=== PATIENT | male | born 1995 | race Caucasian/White ===

== ENCOUNTER 2016-11-21 02:40 | Emergency (ER) | payer OTHER ==
[2016-11-21 02:43] VITALS: BP 130/82; PULSE 79; RESP 18; TEMP 98.2; O2SAT 98
--- NOTE | 2016-11-21 02:49 | EDPHY ---
H & P Stated Complaint: PUNCHED A WALL WITH LEFT HAND HPI/ROS: HPI CHIEF COMPLAINT: Left hand pain, swelling status post punching the wall and hitting stud, alcohol intoxication HISTORY OF PRESENT ILLNESS: This patient very pleasant 21-year-old male he tells me that he was been drinking this evening, tells me he had a few beers and a few mixed drinks, he punched a wall with his left hand and went through the drywall and had a stud. He now has swelling and pain to the dorsum of his left hand, and pain located over the 4th and 5th metacarpal. 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 Neurovascular intact. He does have pain present. Patient denies this being a fight bite, or punching face/teeth. Tetanus UTD. Past Medical History: No medical history Past Surgical History: Right wrist surgery Social History: Occasional alcohol use, denies drugs or tobacco Family History: Noncontributory ROS REVIEW OF SYSTEMS: A comprehensive 10 point review of systems is otherwise negative aside from elements mentioned in the history of present illness. Exam Constitutional triage nursing summary reviewed, vital signs reviewed, awake/ alert. Eyes normal conjunctivae and sclera, EOMI, PERRLA. HENT normal inspection, atraumatic, moist mucus membranes, no epistaxis, neck supple/ no meningismus, no raccoon eyes. Respiratory clear to auscultation bilaterally, normal breath sounds, no respiratory distress, no wheezing. Cardiovascular rate normal, regular rhythm, no murmur, no edema, distal pulses normal. Gastrointestinal soft, non-tender, no rebound, no guarding, normal bowel sounds, no distension, no pulsatile mass. Genitourinary no CVA tenderness. 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 Skin pink, warm, & dry, no rash, skin atraumatic. Neurologic awake, alert and oriented x 3, AAOx3, moves all 4 extremities equally, motor intact, sensory intact, CN II-XII intact, normal cerebellar, normal vision, normal speech. Psychiatric normal mood/affect. Heme/Lymph/Immune no lymphadenopathy. Differential Diagnosis: Includes but is not limited to in a particular order, soft tissue injury, hand fracture, boxer's fracture Medical Decision Making: Plan for this patient ice pack, x-ray of the left hand Re-evaluation: ED x-ray left hand: This shows a fracture of the 5th metacarpal mid shaft. Angulation present. Image interpreted by myself. [id number]: This patient need to be splinted in a sugar-tong splint. Sling. He will need to follow up with Hand surgery. I went over his x-ray with him he understands he needs to call with Hand surgery make an appointment. For follow- up care. Understands return emergency room if develops any worsening swelling, pain, numbness or tingling or questions or concerns. Source: Patient - Personal History Current Tetanus/Diphtheria Vaccine: Yes Current Tetanus Diphtheria and Acellular Pertussis (TDAP): Yes - Medical/Surgical History Hx Asthma: No Hx Chronic Respiratory Disease: No Hx Diabetes: No Hx Cardiac Disease: No Hx Renal Disease: No Hx Cirrhosis: No Hx Alcoholism: No Hx HIV/AIDS: No Hx Splenectomy or Spleen Trauma: No Other PMH: R EAR COLESTICOM - Social History Smoking Status: Never smoked Constitutional: Initial Vital Signs Temperature (C) 36.8 C 11/21/16 02:41 Heart Rate 79 11/21/16 02:41 Respiratory Rate 18 11/21/16 02:41 Blood Pressure 130/82 H 11/21/16 02:41 O2 Sat (%) 98 11/21/16 02:41 O2 Delivery Mode Room Air Allergies/Adverse Reactions: No Known Allergies Allergy (Unverified 11/21/16 02:43) Home Medications: Medication Instructions Recorded Hydrocodone/APAP 5/325 [Mathews 1 - 2 tab PO Q4H PRN #10 tab 11/21/16 5/325] Medical Decision Making - Data Points Medications Given: Discontinued Medications Hydrocodone Bitart/Acetaminophen (Mathews 5/325) 1 tab PO EDNOW ONE Stop: 11/21/16 03:31 Last Admin: 11/21/16 03:34 Dose: 1 tab Departure - Departure Disposition: Home, Routine, Self-Care Clinical Impression: Boxers fracture Qualifiers: Encounter type: initial encounter Fracture type: closed Qualified Code(s): S62.309A - Unspecified fracture of unspecified metacarpal bone, initial encounter for closed fracture Condition: Good Instructions: Hand Fracture (ED), Boxer Fracture (ED) Additional Instructions: 1. Ice your hand. 2. Ibuprofen for pain control. 3. Follow up with Hand surgery. Call for an appointment. Referrals: NONE *PRIMARY CARE P,. [Primary Care Provider] - As per Instructions Alfred Walter MD [Medical Doctor] - As per Instructions Prescriptions: Hydrocodone/APAP 5/325 [Mathews 5/325] 1 - 2 tab PO Q4H PRN #10 tab PRN Reason: Pain, Moderate
[2016-11-21] MEDS ORDERED: HYDROCODONE/APAP 5/325 TAB PO ONE (03:30)
[2016-11-21] MEDS ORDERED: HYDROCOD/APAP 5/325 PREPACK#6 BTL TAKEHOME ONE (03:58)
== END 2016-11-21 04:19 | disposition home or self-care (01) ==
DX: S62.327A Displaced fracture of shaft of fifth metacarpal bone, left hand, initial encounter for closed fracture (principal); W22.01XA Walked into wall, initial encounter
CPT/HCPCS: A4565